=== PATIENT | male | born 2000 | race Caucasian/White ===

== ENCOUNTER 2023-08-23 09:18 | Emergency (ER) | payer BC | END 2023-08-23 09:45 | disposition other institution (70) | LOC: FB.ED 09:18 | DX: N50.811 Right testicular pain (principal); I10 Essential (primary) hypertension; F17.210 Nicotine dependence, cigarettes, uncomplicated; Z88.5 Allergy status to narcotic agent; Z79.899 Other long term (current) drug therapy | CPT/HCPCS: 99284 ==

== ENCOUNTER 2023-11-08 20:07 | Emergency (ER) | payer BC | END 2023-11-08 20:58 | disposition home or self-care (01) | LOC: FB.ED 20:07 | DX: I11.9 Hypertensive heart disease without heart failure (principal); F41.9 Anxiety disorder, unspecified; F17.220 Nicotine dependence, chewing tobacco, uncomplicated; Z79.899 Other long term (current) drug therapy; Z88.5 Allergy status to narcotic agent | CPT/HCPCS: 93005; 99284 ==

== ENCOUNTER 2023-12-02 21:52 | Emergency (ER) | payer BC ==
[2023-12-02] MEDS ORDERED: Sodium Chloride 0.9% 10 ML Syringe FLUSH PRN (22:17)
[2023-12-02] MEDS: Sodium Chloride 0.9% 1,000 ML IV ONE (22:27)
[2023-12-02 22:30] LABS: BASOPHILS ABSOLUTE AUTO 0.1 x10-3/uL (0.0-0.3); BASOPHILS PERCENT AUTO 1.1 % (0.3-3.8); EOSINOPHILS ABSOLUTE AUTO 0.6 x10-3/uL (0.0-0.6); EOSINOPHILS PERCENT AUTO 6.1 % (0.1-6.8); HEMATOCRIT 39.9 % (38.3-50.1); HEMOGLOBIN 14.1 g/dL (12.9-17.7); LYMPHOCYTES ABSOLUTE AUTO 2.8 x10-3/uL (0.5-4.5); LYMPHOCYTES PERCENT AUTO 28.7 % (15.8-45.3); MEAN CORPUSCULAR HEMOGLOBIN 29.8 pg (27.0-33.3); MEAN CORPUSCULAR HGB CONC 35.5 g/dL (28.7-35.3); MEAN CORPUSCULAR VOLUME 83.9 fL (80.8-98.7); MEAN PLATELET VOLUME 9.3 fL (6.7-11.0); MONOCYTES ABSOLUTE AUTO 0.5 x10-3/uL (0.0-1.2); MONOCYTES PERCENT AUTO 5.5 % (5.5-15.2); NEUTROPHILS ABSOLUTE AUTO 5.6 x10-3/uL (1.7-6.9); NEUTROPHILS PERCENT AUTO 58.6 % (40.3-71.8); PLATELET COUNT,PLT 252 x10(3)uL (117-477); RED BLOOD CELL COUNT 4.75 x10(6)uL (3.90-5.90); RED CELL DISTRIBUTION WIDTH 12.8 % (12.4-15.0); WHITE BLOOD CELL COUNT,WBC 9.6 x10-3/uL (3.2-10.1)
[2023-12-02 22:33] LABS: BLOOD UREA NITROGEN,BUN 16 mg/dL (7-18); CALCIUM 8.8 mg/dL (8.6-10.2); CARBON DIOXIDE,CO2 24 mmol/L (21-32); CHLORIDE,CL 101 mmol/L (100-110); EST CRCL DRUG DOSING (CG) 97.02 mL/min; ESTIMATED GFR 109 mL/min (>60); GLUCOSE RANDOM 116 mg/dL (80-116); POTASSIUM,K 3.5 mmol/L (3.5-5.3); SODIUM,NA 139 mmol/L (135-145)
[2023-12-02 22:39] LABS: A/G RATIO 1.2; ALANINE AMINOTRANSFERASE,ALT 34 U/L (12-36); ALBUMIN 4.4 g/dL (3.5-5.2); ALKALINE PHOSPHATASE 93 IU/L (56-112); ASPARTATE AMNIOTRANSFERASE,AST 17 IU/L (5-25); BILIRUBIN TOTAL 0.3 mg/dL (0.1-1.3); PROTEIN TOTAL,TP 8.1 g/dL (6.0-8.0)
[2023-12-02 22:43] LABS: LACTIC ACID 1.3 mmol/L (0.4-2.0)
[2023-12-02 23:13] LABS: BILIRUBIN,URINE NEGATIVE (NEGATIVE); GLUCOSE,URINE NORMAL (NORMAL); KETONES,URINE NEGATIVE (NEGATIVE); LEUKOCYTE ESTERASE,URINE NEGATIVE (NEGATIVE); NITRITE,URINE NEGATIVE (NEGATIVE); OCCULT BLOOD,URINE NEGATIVE (NEGATIVE); PROTEIN,URINE NEGATIVE (NEGATIVE); UROBILINOGEN,URINE NORMAL (NEGATIVE)
[2023-12-02 23:14] LABS: APPEARANCE,URINE CLEAR (CLEAR); BACTERIA,URINE FEW (NS); COLOR,URINE YELLOW (YELLOW); MUCUS,URINE FEW (NS); RBC,URINE NOT SEEN (0-5); SQUAMOUS EPITHELIAL CELLS,UR OCCASIONAL (NS,R,O); WBC,URINE 0-5 (0-5)
== END 2023-12-03 00:42 | disposition home or self-care (01) ==
LOC: FB.ED 21:52
DX: I88.0 Nonspecific mesenteric lymphadenitis (principal); I10 Essential (primary) hypertension; Z79.899 Other long term (current) drug therapy; Z88.5 Allergy status to narcotic agent
CPT/HCPCS: 36415; 74176; 80053; 81001; 83605; 83690; 85025; 96360; 96361; 99283; 99284-25; J7030